=== PATIENT | male | born 1955 | race Caucasian/White ===

== ENCOUNTER 2019-08-12 21:49 | Emergency (ER) | payer BC, OTHER ==
[~2019-08-12] VITALS: Ht 185.4 cm; Wt 108.0 kg
[2019-08-12] MEDS ORDERED: ACETAMINOPHEN 325 MG TABLET ONE (22:20)
--- NOTE | 2019-08-12 22:26 | NUR ---
PT HERE FOR FEVER , COUGH AND INCREASED SOB SINCE YESTERDAY. PT PLACED ON MONITOR. VSS. PT TOOK TYLENOL [employer]OL [employer]. AWARE. TYLENOL HELD AT THIS TIME. LAB AT BEDSIDE. CALL LIGHT IN REACH
[2019-08-12] MEDS ORDERED: ACETAMINOPHEN 325 MG TABLET PO ONE (22:30)
[2019-08-12 22:55] LABS: MEAN CORPUSCULAR HEMOGLOBIN 31.8 pg (27.5-34.5); MEAN CORPUSCULAR HGB CONC 33.8 g/dL (33.2-36.2); MEAN CORPUSCULAR VOLUME 94.1 fL (81-97); MEAN PLATELET VOLUME 8.8 fL (7.4-10.4); PLATELET COUNT 263 x10^3/uL (130-400); RED BLOOD COUNT 4.87 x10^6/uL (4.38-5.82); RED CELL DISTRIBUTION WIDTH 12.6 % (9.4-14.8)
[2019-08-12 23:01] LABS: ALANINE AMINOTRANSFERASE 26 U/L (12-78); ALBUMIN 3.8 g/dL (3.4-5.0); ANION GAP 7 mmol/L (5-15); CALCIUM 9.3 mg/dL (8.5-10.1); CHLORIDE 110 mmol/L (98-107); CREATININE 1.24 mg/dL (0.7-1.3)
[2019-08-12 23:06] LABS: ALKALINE PHOSPHATASE 77 U/L (45-117); BILIRUBIN,TOTAL 0.3 mg/dL (0.2-1.0); TOTAL PROTEIN 7.7 g/dL (6.4-8.2); TROPONIN I < 0.015 ng/mL (0.000-0.045)
[2019-08-12 23:11] LABS: BASOS% (MANUAL) 1 % (0-1); LYMPHS% (MANUAL) 8 % (22-44); MD YES; MONOS% (MANUAL) 5 % (2-9); REACTIVE LYMPHS % (MANUAL) 3 % (0-0); SEGS% (MANUAL) 83 % (42-75)
[2019-08-12 23:13] LABS: <PLATELET ESTIMATE> ADEQUATE; <PLT MORPHOLOGY> NORMAL PLT MORPH; <RBC MORPHOLOGY> NORMAL
[2019-08-12 23:30] VITALS: BP 146/71
--- NOTE | 2019-08-12 23:55 | NUR ---
Patient given discharge instructions and they have confirmed that they understand the instructions. Patient ambulatory with steady gait.
== END 2019-08-12 23:57 | disposition home or self-care (01) ==
LOC: ED 22:25
DX: D72.829 Elevated white blood cell count, unspecified (principal); Z20.828 Contact with and (suspected) exposure to other viral communicable diseases; R65.10 Systemic inflammatory response syndrome (SIRS) of non-infectious origin without acute organ dysfunction; R00.0 Tachycardia, unspecified; I10 Essential (primary) hypertension; Z90.49 Acquired absence of other specified parts of digestive tract
CPT/HCPCS: 36415; 71045; 80053; 83605; 83880; 84145; 84484; 85025; 87040; 93005; 99285; U0001